=== PATIENT | male | born 1995 | race Caucasian/White ===

== ENCOUNTER 2020-03-24 22:29 | Emergency (ER) | payer OTHER ==
[2020-03-24 22:34] VITALS: RESP 18
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
[2020-03-24 23:17] VITALS: BP 138/90; PULSE 69; TEMP 98.7
== END 2020-03-24 23:17 | disposition other institution (70) ==
LOC: EC 22:29
DX: T23.001A Burn of unspecified degree of right hand, unspecified site, initial encounter (principal); Z88.0 Allergy status to penicillin; X08.8XXA Exposure to other specified smoke, fire and flames, initial encounter
CPT/HCPCS: 99284